=== PATIENT | born 1950 | race Caucasian/White ===

== ENCOUNTER → 2024-01-26 10:00 | Outpatient (BNVA) | payer OTHER, SELFPAY | PROVIDERS: Referring Provider Nurse Practitioner Family; Visit Provider Internal Medicine | DX: E03.9 Hypothyroidism, unspecified (principal); I95.1 Orthostatic hypotension; I48.91 Unspecified atrial fibrillation | CPT/HCPCS: 36415; 82533; 84439; 84443; 99204 ==

== ENCOUNTER 2024-03-03 09:52 | Oncology outpatient (recurring) (ONCR) | payer OTHER, SELFPAY ==
[2024-03-03] MEDS: cosyntropin 0.25 mg SDV IVP (10:42)
[2024-03-03 11:17] LABS: Cosyntropin Baseline 12.38 mcg/dL
[2024-03-03 11:57] VITALS: BP 112/64; PULSE 62; RESP 16; TEMP 36.9
[2024-03-03 12:02] LABS: Cosyntropin 30 Minute 19.45 mcg/dL
[2024-03-03 12:31] LABS: Cosyntropin 1 Hour 24.69 mcg/dL
== END 2024-03-31 23:59 | disposition home or self-care (01) ==
LOC: ONCMED 09:55
PROVIDERS: Visit Provider Internal Medicine
DX: I48.91 Unspecified atrial fibrillation (principal); I95.1 Orthostatic hypotension
CPT/HCPCS: 36415; 82533; J0834